=== PATIENT | male | born 1970 | race Caucasian/White ===

== ENCOUNTER 2018-05-14 17:54 | Emergency (ER) | payer OTHER ==
[~2018-05-14] VITALS: Ht 182.8 cm; Wt 106.6 kg
[~2018-05-14 17:54] MED LIST: FLEXERIL5 MG PO; NKHM; PREDNISONE20 MG PO; TRAMADOL HCL50 MG PO
[2018-05-14] MEDS ORDERED: MEDROL DOSEPAK4 MG PO (20:34)
[2018-05-14] MEDS ORDERED: CYCLOBENZAPRINE5 M3 PO (20:34)
== END 2018-05-14 20:46 | disposition home or self-care (01) ==
LOC: ED 17:54
DX: M54.5 Low back pain (principal); I10 Essential (primary) hypertension